=== PATIENT | male | born 1970 | race Caucasian/White ===

== ENCOUNTER 2020-01-25 16:19 | Emergency (ER) | payer SELFPAY ==
--- NOTE | 2020-01-25 17:07 | ED ---
Throat Pain/Nasal Congestion - HPI Summary HPI Summary: 49-year-old male presents to the emergency department today with a chief complaint of epistaxis which began approximately 2 hours ago. Patient states he blew his nose this afternoon which caused his nose to bleed. Patient states when his nose bleeding he felt blood running down the back of throat and he had bleeding through both nares. Patient is not on anticoagulants. Bleeding is resolved at this time. Patient states approximately one year ago he had a similar episode which required a Rhino Rocket. Patient otherwise feels well and denies fever, chest pain, abdominal pain, shortness of breath, urination, nausea, vomiting, diarrhea. - History of Current Complaint Chief Complaint: EDEpistaxis Time Seen by Provider: 01/25/20 16:40 Hx Obtained From: Patient Onset/Duration: Sudden Onset Severity: Moderate Associated Signs And Symptoms: Positive: Nasal Discharge - Allergies/Home Medications Allergies/Adverse Reactions: Allergies Allergy/AdvReac Type Severity Reaction Status Date / Time No Known Allergies Allergy Verified 01/25/20 16:23 PMH/Surg Hx/FS Hx/Imm Hx Infectious Disease History: No Infectious Disease History: Denies: Traveled Outside the [place] in Last 30 Days Review of Systems Constitutional: Negative Eyes: Negative Positive: Epistaxis Cardiovascular: Negative Respiratory: Negative Gastrointestinal: Negative Genitourinary: Negative Musculoskeletal: Negative Skin: Negative Neurological/Mental Status: Negative Psychological: Normal All Other Systems Reviewed And Are Negative: Yes Physical Exam - Summary Physical Exam Summary: Patient is in no acute distress. Epistaxis seems to be resolved upon arrival to the emergency department. There is evidence of epistaxis with dried blood in the bilateral nares. Triage Information Reviewed: Yes Vital Signs On Initial Exam: Initial Vitals Temp Pulse Resp BP Pulse Ox 97.7 F 63 16 179/104 98 01/25/20 16:21 01/25/20 16:21 01/25/20 16:21 01/25/20 16:21 01/25/20 16:21 Vital Signs Reviewed: Yes Appearance: Positive: Well-Appearing, No Pain Distress, Well-Nourished Skin: Positive: Warm, Skin Color Reflects Adequate Perfusion Eyes: Positive: EOMI, KARRI ENT: Positive: Hearing grossly normal Respiratory/Lung Sounds: Positive: Clear to Auscultation, Breath Sounds Present Cardiovascular: Positive: RRR, S1, S2 Abdomen Description: Positive: Nontender, Soft Bowel Sounds: Positive: Present Musculoskeletal: Positive: Strength/ROM Intact Neurological: Positive: Sensory/Motor Intact, Alert, Oriented to Person Place, Time Psychiatric: Positive: Normal, Affect/Mood Appropriate AVPU Assessment: Alert Procedures - Sedation Patient Received Moderate/Deep Sedation with Procedure: No Diagnostics - Vital Signs Vital Signs Temp Pulse Resp BP Pulse Ox 01/25/20 16:21 97.7 F 63 16 179/104 98 - Laboratory Lab Statement: Any lab studies that have been ordered have been reviewed, and results considered in the medical decision making process. EENT Course/Dx - Course Course Of Treatment: Patient was evaluated in the emergency department today for epistaxis. Vitals noted. Epistaxis has resolved upon arrival to the emergency department today. Physical exam is consistent with right anterior epistaxis. Clots are removed and clamp was applied for approximately 15 minutes. After this minor bleeding continued. Clots were once again removed and Afrin was inserted into both nares bilaterally and pressure was applied for 15 minutes. After vasoconstrictive therapy epistaxis has resolved. Patient discharged with outpatient follow-up. - Differential Diagnoses Differential Diagnoses: Epistaxis - Diagnoses Provider Diagnoses: Epistaxis Discharge ED - Sign-Out/Discharge Documenting (check all that apply): Patient Departure - Discharge Plan Condition: Stable Disposition: HOME Patient Education Materials: Nosebleed (ED) Referrals: Federico Batista MD [Medical Doctor] - 5 Days No Primary Care Phys,NOPCP [Primary Care Provider] - Additional Instructions: You were seen in the emergency department today due to a nosebleed. Please do not blow nose or place objects in your nose for approximately 48 hours. Please be sure to apply Vaseline to nasal mucosa this evening prior to bed. Please follow up with otolaryngology in 5 days for further evaluation and management. Please return to this emergency Department immediately if you develop any new or worsening symptoms. If you begin to bleed again please provide pressure for 15 minutes 2 if bleeding is not stopped please return to the emergency department. - Billing Disposition and Condition Condition: STABLE Disposition: Home
[2020-01-25] MEDS ORDERED: Oxymetazoline 0.05% NASAL SPR* 15 ML BTL BOTH NARES ONE (17:13)
[2020-01-25 19:07] VITALS: BP 167/114
== END 2020-01-25 18:30 | disposition home or self-care (01) ==
LOC: ED 16:19
DX: R04.0 Epistaxis (principal)
CPT/HCPCS: 99281; A9270-GY